=== PATIENT | male | born 1975 | race Caucasian/White ===

== ENCOUNTER → 2017-12-16 22:09 | Outpatient (CLI) | payer BC, SELFPAY ==
--- NOTE | 2017-12-16 22:26 | XR_ITS ---
XR finger LT min 2V CLINICAL INDICATION: ITS.REASON: FINGER ERYTHEMA ORDERING PHYSICIAN: Marjorie Gibbs PATIENT AGE: 42 years COMPARISON: None FINDINGS: No bony or joint abnormality. There is soft tissue swelling along the ulnar aspect of the proximal phalanx of the fifth finger. No obvious radio opaque foreign body or soft tissue gas. IMPRESSION: Soft tissue swelling otherwise negative
== END ==
PROVIDERS: PCP Nurse Practitioner Family; Visit Provider Nurse Practitioner Family
DX: S69.90XA Unspecified injury of unspecified wrist, hand and finger(s), initial encounter (principal); L53.9 Erythematous condition, unspecified
CPT/HCPCS: 73140

== ENCOUNTER 2018-02-10 07:19 | Day surgery (SDC) | payer BC, SELFPAY ==
[2018-02-08 12:50] VITALS: BMI 20.4
[2018-02-10 07:52] VITALS: BP 102/56; PULSE 75; RESP 16; TEMP 36.7; O2SAT 97
[2018-02-10 08:08] LABS: Basophils # 0.1 K/mm3 (0-0.2); Basophils % 0.7 % (0.1-2.0); Eosinophils # 0.2 K/mm3 (0.0-0.4); Eosinophils % 2.3 % (0.1-12.0); Hematocrit 43.1 % (42.0-52.0); Hemoglobin 14.6 g/dL (14.1-18.0); Lymphocytes # 3.5 K/mm3 (0.7-4.5); Lymphocytes % 43.5 K/mm3 (10-50); Mean Corpuscular HGB Conc 33.8 g/dL (31.8-35.4); Mean Corpuscular Hemoglobin 31.5 pg (27.0-31.2); Mean Corpuscular Volume 93.3 fl (80-94); Monocytes # 0.5 K/mm3 (0.1-1.0); Monocytes % 6.6 % (1.7-9.3); Neutrophils # 3.8 K/mm3 (1.8-7.8); Platelet Count 242 K/mm3 (142-424); Red Blood Count 4.62 M/mm3 (4.60-6.20); Red Cell Distribution Width 12.7 % (11.5-17.5)
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
[2018-02-10 08:17] LABS: Anion Gap 7.5 mEq/L (5-15); Blood Urea Nitrogen 10 mg/dL (7-18); Carbon Dioxide 27 mmol/L (21.0-32.0); Chloride 106 mmol/L (98-107); Creatinine Clearance Estimated 121 mL/min (0-300); Estimated Glomerular Filt Rate 107 ml/min (>60); GFR (African American) 129 ML/MIN (>60); Glucose 86 mg/dL (74-106); Potassium 3.5 mmoL/L (3.5-5.1); Sodium 137 mmol/L (136-145)
[2018-02-10 09:05] VITALS: BP 105/70; PULSE 77; RESP 20; TEMP 36.7; O2SAT 100
--- NOTE | 2018-02-10 09:05 | HMH.OPNOTE ---
Date of procedure: 02/10/18 Pre-op Diagnosis:: Left hand fifth digit foreign body with abscess Post-op Diagnosis:: Same Procedure performed:: Incision and drainage of abscessed foreign body left hand fifth digit Surgeon:: Ben Linda MD [employer]:: Other Anesthesia: local, other (block) Estimated blood loss (mL): 5 Operative findings:: Inflamed tissue excised with no definitive foreign body Wound only partially reapproximated in order to allow for packing Operative note:: After informed consent was obtained, the patient was taken to the operating room and placed in the supine position. A block was performed by the anesthesia service. The patient's left hand was prepped and draped in a sterile fashion. The area of inflammation and swelling was carefully opened with scalpel. Granulation tissue was excised. No definitive or large foreign body was removed. Small foreign body with focal abscess could not be ruled out. In order to avoid major vascular or neural injury the decision was made to forego deeper incision. The wound was irrigated. The lateral margins were reapproximated with interrupted nylon and the wound was packed open. Dressings were applied and the patient was transferred to recovery in stable condition. Condition: stable Disposition: PACU Complications:: No immediate
--- NOTE | 2018-02-10 09:09 | P.OP_ITS ---
Date of procedure: 02/10/18 Pre-op Diagnosis:: Left hand fifth digit foreign body with abscess Post-op Diagnosis:: Same Procedure performed:: Incision and drainage of abscessed foreign body left hand fifth digit Surgeon:: Ben Linda MD [employer]ER:: Other Anesthesia: local, other (block) Estimated blood loss (mL): 5 Operative findings:: Inflamed tissue excised with no definitive foreign body Wound only partially reapproximated in order to allow for packing Operative note:: After informed consent was obtained, the patient was taken to the operating room and placed in the supine position. A block was performed by the anesthesia service. The patient's left hand was prepped and draped in a sterile fashion. The area of inflammation and swelling was carefully opened with scalpel. Granulation tissue was excised. No definitive or large foreign body was removed. Small foreign body with focal abscess could not be ruled out. In order to avoid major vascular or neural injury the decision was made to forego deeper incision. The wound was irrigated. The lateral margins were reapproximated with interrupted nylon and the wound was packed open. Dressings were applied and the patient was transferred to recovery in stable condition. Condition: stable Disposition: PACU Complications:: No immediate
[2018-02-10 09:20] VITALS: BP 105/69; PULSE 59; RESP 20; O2SAT 100
[2018-02-10 09:35] VITALS: BP 101/71; PULSE 59; RESP 20; TEMP 36.7; O2SAT 100
== END 2018-02-10 09:35 | disposition home or self-care (01) ==
PROVIDERS: Family Provider Family Medicine; PCP Nurse Practitioner Family; Visit Provider Surgery
PROC: (CPT 26010; principal; 2018-02-10 08:45)
DX: L02.512 Cutaneous abscess of left hand (principal)
CPT/HCPCS: 26010; 80048; 85025; 96374